=== PATIENT | female | born 1965 | race Caucasian/White ===

== ENCOUNTER 2016-11-13 11:48 | Inpatient (IN) | payer OTHER ==
[~2016-11-13] VITALS: Ht 160 cm; Wt 75.0 kg
[2016-11-13] MEDS ORDERED: HYDROmorphONE 1 MG/ML SYG IV STA (13:19)
[2016-11-13] MEDS ORDERED: ONDANSETRON 4 MG INJ IV STA (13:19)
[2016-11-13] MEDS ORDERED: FLUORESCEIN STRIP LEFT EYE ONE (13:30)
[2016-11-13] MEDS ORDERED: ACYCLOVIR 500 MG in SOD CHLORIDE 0.9% 100 ML IVPB ONE (13:30)
--- NOTE | 2016-11-13 13:47 | ERA ---
ER Documentation Chief Complaint Date/Time DATE: 11/13/16 TIME: 13:35 Chief Complaint Pt dx with Shingles to L eye and forehead yesterday, worset today. HPI This is a 50-year-old female who complains of the onset of a rash to the left forehead 3 days ago that has developed into some blisters. She saw her doctor yesterday and was told she had shingles and woke today with a much worsening condition. She says the blisters and redness and pain described as burning is along the left forehead and now around her left eye with some eyelid swelling and erythema. She says her eye has no pain when she moves her eyes or blinks her vision is clear. She denies any fever. ROS All systems reviewed and are negative except as per history of present illness. PMhx/Soc Medical and Surgical Hx: pt denies Medical Hx, pt denies Surgical Hx Hx Alcohol Use: No Hx Substance Use: No Hx Tobacco Use: No Smoking Status: Never smoker FmHx Family History: No coronary disease (0) Physical Exam Vitals Vital Signs Date Time Temp Pulse Resp B/P Pulse Ox O2 Delivery O2 Flow Rate FiO2 11/13/16 11:59 98.0 68 16 149/74 98 Physical Exam Const: Well-developed, well-nourished Head: Atraumatic, normocephalic Eyes: Normal Conjunctiva, PERRLA, EOMI, normal sclera, no nystagmus, grossly negative fluorescein stain to the left eye for any dendritic lesions ENT: Normal External Ears, Nose and Mouth, moist mucus membranes shingles rash. Neck: Full range of motion. No meningismus, no lymphadenopathy. Resp: Clear to auscultation bilaterally, no wheezing, rhonchi, rales Cardio: Regular rate and rhythm, no murmurs, S1 S2 present Abd: Soft, non tender x 4, non distended. Normal bowel sounds, no guarding or rebound, no pulsitile abdominal masses or bruits Skin: Vesicular rash to the left forehead left periorbital region and bridge of nose, negative Denis sign Back: No midline or flank tenderness Ext: No cyanosis, or edema, FROM x 4, normal inspection, neurovascularly intact x 4 Neur: Awake and alert, STR 5/5 x 4, sensation intact x 4, no focal findings, cerebellum intact Psych: Normal Mood and Affect Results 24 hrs Current Medications Medications (Trade) Dose Ordered Sig/Stephon Route PRN Reason Start Time Stop Time Status Last Admin Dose Admin Hydromorphone HCl (Dilaudid) 1 mg ONCE STAT IV 11/13/16 13:19 11/13/16 13:22 DC Ondansetron HCl 4 mg 4 mg ONCE STAT IV 11/13/16 13:19 11/13/16 13:22 DC Acyclovir/Sodium Chloride (Zovirax/NS) 100 ml @ 100 mls/hr ONCE ONCE IVPB 11/13/16 13:30 11/13/16 14:29 Fluorescein Sodium (Kcjfj-[id number]-Nyhdf) 1 strip ONCE ONCE LEFT EYE 11/13/16 13:30 11/13/16 13:31 DC Procedures/MDM Patient received intravenous acyclovir I will put Viroptic drops in the left eye as a precaution. Patient will be admitted to the hospital for severe shingles infection to the face and periorbital region. No sign of superinfection at this time Departure Diagnosis: Primary Impression: Shingles Qualified Code: B02.9 - Herpes zoster without complication Condition: Stable АНДРЕЙ OSUNA DO Nov 13, 2016 13:46
[2016-11-13 14:02] LABS: BASOPHILS % 0.1 % (0.0-2.0); CONDITION 1; EOSINOPHILS # 0.1 10^3/ul (0.0-0.5); EOSINOPHILS % 0.9 % (0.0-7.0); HEMATOCRIT 42.4 % (37.0-47.0); HEMOGLOBIN 14.4 g/dl (12.0-16.0); LYMPHOCYTES # 0.7 10^3/ul (0.8-2.9); LYMPHOCYTES % 10.5 % (15.0-51.0); MEAN CORPUSCULAR HEMOGLOBIN 30.4 pg (29.0-33.0); MEAN CORPUSCULAR HGB CONC 34.1 g/dl (32.0-37.0); MEAN CORPUSCULAR VOLUME 89.3 fl (82.0-101.0); MEAN PLATELET VOLUME 8.4 fl (7.4-10.4); MONOCYTE # 0.7 10^3/ul (0.3-0.9); MONOCYTES % 10.4 % (0.0-11.0); NEUTROPHIL # 5.1 10^3/ul (1.6-7.5); NEUTROPHILS % 78.1 % (39.0-77.0); PLATELET COUNT 204 10^3/UL (140-440); RED BLOOD COUNT 4.75 10^6/ul (4.20-5.40); RED CELL DISTRIBUTION WIDTH 13.1 % (11.5-14.5); UNCORRECTED WBC 6.5 10^3/ul (4.8-10.8); WHITE BLOOD COUNT 6.5 10^3/ul (4.8-10.8)
[2016-11-13 14:09] LABS: ALBUMIN 4.3 g/dl (3.3-4.9); POTASSIUM 3.9 mmol/L (3.5-5.1)
[2016-11-13 14:11] LABS: BILIRUBIN,INDIRECT 1.5 mg/dl (0-1.1); BILIRUBIN,TOTAL 1.5 mg/dl (0.2-1.3); CREATININE 0.57 mg/dl (0.44-1.00)
[2016-11-13 14:12] LABS: ALBUMIN/GLOBULIN RATIO 1.26; CALCIUM 9.3 mg/dl (8.4-10.2); TOTAL PROTEIN 7.7 g/dl (6.1-8.1)
[2016-11-13] MEDS ORDERED: SOD CHLORIDE 0.9% 1,000 ML IV SCH (14:12)
[2016-11-13] MEDS ORDERED: ONDANSETRON 4 MG INJ IV PRN ×3 (14:30→21:30)
[2016-11-13] MEDS ORDERED: TRIFLURIDINE 1% LEFT EYE SCH (14:30)
[2016-11-13] MEDS ORDERED: ACETAMINOPHEN 325 MG TAB PO PRN ×2 (14:30→15:30)
[2016-11-13] MEDS ORDERED: NITROGLYCERIN (SL) 0.4 MG TAB SL PRN (15:30)
[2016-11-13] MEDS ORDERED: NA PHOSPHATE/BIPHOS 133 ML ENEMA PR PRN (15:30)
[2016-11-13] MEDS ORDERED: hydrALAzine 20 MG INJ IV PRN (15:30)
[2016-11-13] MEDS ORDERED: morphine 2 MG INJ IV PRN (15:30)
[2016-11-13] MEDS: VALACYCLOVIR 500 MG TAB PO SCH ×2 (15:30→21:14)
[2016-11-13] MEDS ORDERED: NACL 0.9% 3 ML SYG IV SCH (15:30)
[2016-11-13] MEDS ORDERED: ALBUTEROL/IPRATROPIUM (NEB) 3 ML AMP HHN PRN (15:30)
[2016-11-13] MEDS ORDERED: LORAZEPAM 2 MG INJ IV PRN (15:30)
[2016-11-13] MEDS ORDERED: DOCUSATE SODIUM 100 MG CAP PO PRN (15:30)
[2016-11-13] MEDS ORDERED: MAGNESIUM HYDROXIDE 30ML CUP PO PRN (15:30)
[2016-11-13 15:55] VITALS: PULSE 65; TEMP 97.9
[2016-11-13] MEDS: SOD CHLORIDE 0.45% 1,000 ML IV SCH (16:55)
[2016-11-13] MEDS ORDERED: TRIMETHOBENZAMIDE 100 MG/ML VIAL IM PRN (17:00)
[2016-11-13 17:10] VITALS: Ht 160 cm; Wt 75.0 kg
[2016-11-13] MEDS ORDERED: ONDANSETRON INJ 8 MG in SOD CHLORIDE 0.9% 50 ML IV PRN (17:30)
[2016-11-13 17:32] VITALS: BP 148/73
--- NOTE | 2016-11-13 17:45 | HP ---
DATE OF ADMISSION: 11/13/2016 CHIEF COMPLAINT: Shingles to left forehead and worsening pain. HISTORY OF PRESENT ILLNESS: A 50-year-old female with no significant past medical history who prese nts with the last 2 days of rash to the left side of her forehead with some blisters. She saw her [facility] doctor yesterday and was prescribed acyclovir to take 5 times a day. The patient did ta ke the medication, but woke up this morning with worsening pain and specifically burning pain along the left forehead and now around her left thigh with some eyelid swelling and edema. No upper or lo wer GI bleeding, no fevers or chills. No nausea, vomiting. No headaches or dizziness or loss of co nsciousness. She says she is still able to see fine and has no pain when she blinks her eyes and he r vision is clear. The patient had a negative fluorescein stain to the left eye to look for any dendritic lesions perfo rmed in the ER and this was apparently negative. PAST MEDICAL HISTORY: As stated above. ALLERGIES: NO KNOWN DRUG ALLERGIES. MEDICATIONS AT HOME: Again, she recently was on acyclovir 5 times a day and also [place] p.r.n. PAST SURGICAL HISTORY: None. FAMILY HISTORY: Mother had hypertension. SOCIAL HISTORY: Negative for smoking, drinking, or IV drug abuse. PHYSICAL EXAMINATION: VITAL SIGNS: T-max 98.0, pulse 68, respirations 16, blood pressure 149/74, saturating at 98% on kip m air. GENERAL: The patient is lying in bed, at the bedside. She is in mild distress but alert. HEENT: Pupils are equal, round, react to light. Extraocular muscles intact. Sclerae are normal. There is a shingles rash with some blisters noted around the left upper forehead, tender to palpatio n. The rest of the HEENT exam is normal. Again as mentioned, there is also vesicular rash of the l eft forehead, left periorbital region and the bridge of the nose NECK: Supple, no thyromegaly. LUNGS: Clear to auscultation bilaterally. CARDIOVASCULAR: S1, S2 heard. No rubs or gallops. ABDOMEN: Soft, nontender, nondistended. Normal bowel sounds. MUSCULOSKELETAL: Lower extremity edema bilaterally. NEUROLOGIC: No focal deficits. LABORATORIES: CBC is completely normal. Comprehensive metabolic panel was normal. ASSESSMENT AND PLAN: A 50-year-old female coming in with redness and burning pain in the left foreh ead for the last 3 days with signs of shingles. 1. Left forehead redness that is most likely secondary to shingles. We will admit her for pain con trol and antibiotic management. Indications from the literature suggests Valtrex 1000 mg t.i.d. as a better choice than acyclovir 5 times a day, so will put her on that for now. Will consider infect ious disease consult. Please note there appears to be no vision compromise. There appears to be no crusting yet of her lesions, so will still recommend treatment for full 7 days. Will get infectiou s disease consult as well. For now, we will tentatively keep isolation precautions, although the ri sks are more for people who are immunocompromise, females or people who have never had vari jak or chickenpox. In any event, we will keep her on contact isolation. 2. Check TSH, A1c and lipid panel. 3. Gastrointestinal prophylaxis, proton pump inhibitor. 4. Deep venous thrombosis prophylaxis, heparin subcutaneously. Dictated By: CINDY DRAPER/YAYA Conf#: [id number] DID#: [id number]
[2016-11-13] MEDS: HYDROCODONE/APAP (5/325) TAB PO PRN (19:25)
[2016-11-13] MEDS: HEPARIN 5,000 UNIT/0.5 ML SYG SC SCH (21:33)
[2016-11-14] MEDS: HYDROCODONE/APAP (5/325) TAB PO PRN ×4 (03:16→22:13)
[2016-11-14] MEDS: SOD CHLORIDE 0.45% 1,000 ML IV SCH ×3 (04:21→17:54)
[2016-11-14] MEDS: PANTOPRAZOLE (EC) 40 MG TAB PO SCH (06:03)
[2016-11-14 06:51] LABS: POTASSIUM 4.3 mmol/L (3.5-5.1)
[2016-11-14 06:53] LABS: BASOPHILS % 0.4 % (0.0-2.0); EOSINOPHILS # 0.1 10^3/ul (0.0-0.5); EOSINOPHILS % 0.9 % (0.0-7.0); LYMPHOCYTES # 1.2 10^3/ul (0.8-2.9); LYMPHOCYTES % 17.9 % (15.0-51.0); MEAN CORPUSCULAR HEMOGLOBIN 31.4 pg (29.0-33.0); MEAN CORPUSCULAR HGB CONC 35.1 g/dl (32.0-37.0); MEAN CORPUSCULAR VOLUME 89.5 fl (82.0-101.0); MEAN PLATELET VOLUME 8.9 fl (7.4-10.4); MONOCYTES % 14.9 % (0.0-11.0); NEUTROPHIL # 4.3 10^3/ul (1.6-7.5); NEUTROPHILS % 65.9 % (39.0-77.0); PLATELET COUNT 184 10^3/UL (140-440); RED BLOOD COUNT 4.13 10^6/ul (4.20-5.40); RED CELL DISTRIBUTION WIDTH 13.1 % (11.5-14.5); UNCORRECTED WBC 6.6 10^3/ul (4.8-10.8); WHITE BLOOD COUNT 6.6 10^3/ul (4.8-10.8)
[2016-11-14 06:54] LABS: CREATININE 0.63 mg/dl (0.44-1.00)
[2016-11-14 06:55] LABS: CALCIUM 9.1 mg/dl (8.4-10.2); PHOSPHORUS 4.3 mg/dl (2.5-4.9)
[2016-11-14 06:56] LABS: CHOL/HDL RATIO 4.9 RATIO
[2016-11-14 07:06] LABS: CONDITION 1
[2016-11-14 07:22] LABS: THYROID STIMULATING HORMONE 0.875 MIU/L (0.465-4.680)
[2016-11-14] MEDS: VALACYCLOVIR 500 MG TAB PO SCH ×3 (08:07→21:11)
[2016-11-14 08:18] VITALS: BP 127/68; RESP 18
[2016-11-14] MEDS: HEPARIN 5,000 UNIT/0.5 ML SYG SC SCH ×2 (08:23→21:22)
[2016-11-14] MEDS ORDERED: INFLUENZA VIRUS VACCINE 0.5 ML (DISPENSING) IM* ONE (09:00)
[2016-11-14] MEDS: ARTIFICIAL TEARS 15 ML OPH BOTH EYES SCH ×5 (10:00→21:11)
[2016-11-14] MEDS ORDERED: HYDROmorphONE 1 MG/ML SYG IV PRN (10:00)
--- NOTE | 2016-11-14 10:01 | PN ---
Date/Time of Note Date/Time of Note DATE: 11/14/16 TIME: 09:57 Assessment/Plan VTE Prophylaxis VTE Prophylaxis Intervention: heparin Lines/Catheters IV Catheter Type (from Nrs): Peripheral IV Assessment/Plan Chief Complaint/Hosp Course ASSESSMENT AND PLAN: 50-year-old female coming in with redness and burning pain in the left forehead for the last 3 days with signs of shingles. 1. Left forehead redness/shingles - vesicles and redness slightly improved, but still present.There appears to be no vision compromise. There appears to be no crusting yet of her lesions,. - continue Valtrex 1000 mg t.i.d. (literature states it is a better choice than acyclovir 5 times a day) for full 7 days. - f/u infectious disease consult rec's. - tentatively keep isolation precautions, although the risks are more for people who are immunocompromise, females or people who have never had varicella or chickenpox, so keep contact isolation. - rewetting drops for left eye 2. left face pain - sec to # 1 - switch to low dose dilaudid, tylenol prn as well - tigan, zofran prn nausea 3. Gastrointestinal prophylaxis, proton pump inhibitor. 4. Deep venous thrombosis prophylaxis, heparin subcutaneously. Problems: Subjective 24 Hr Interval Summary Free Text/Dictation Pt with slightly less pain in face, but still prominent at times, has + nausea she believes sec to morphine as well. No fevers. Exam/Review of Systems Vital Signs Vitals Vital Signs Date Time Temp Pulse Resp B/P Pulse Ox O2 Delivery O2 Flow Rate FiO2 11/14/16 08:18 98.0 50 18 127/68 98 11/13/16 15:55 Room Air Intake and Output 11/13/16 11/13/16 11/14/16 15:00 23:00 07:00 Intake Total 240 ml 1800 ml Balance 240 ml 1800 ml Exam GENERAL: The patient is lying in bed, at the bedside. She is in mild distress but alert. HEENT: Pupils are equal, round, react to light. Extraocular muscles intact. Sclerae are normal. + shingles rash with some blisters noted around the left upper forehead, tender to palpation, slightly improved. The rest of the HEENT exam is normal. Again as mentioned, there is also vesicular rash of the left forehead, left periorbital region and the bridge of the nose NECK: Supple, no thyromegaly. LUNGS: Clear to auscultation bilaterally. CARDIOVASCULAR: S1, S2 heard. No rubs or gallops. ABDOMEN: Soft, nontender, nondistended. Normal bowel sounds. MUSCULOSKELETAL: Lower extremity edema bilaterally. NEUROLOGIC: No focal deficits. Results Result Diagram: 11/14/16 0520 11/14/16 0520 Results 24 hrs Laboratory Tests Test 11/13/16 13:44 11/13/16 13:45 11/14/16 05:20 Free Thyroxine 1.41 Alanine Aminotransferase (ALT/SGPT) 34 Albumin 4.3 Albumin/Globulin Ratio 1.26 Alkaline Phosphatase 81 Anion Gap 15 14 Aspartate Amino Transf (AST/SGOT) 28 Basophils # 0.0 0.0 Basophils % 0.1 0.4 Blood Urea Nitrogen 7 9 Calcium Level 9.3 9.1 Carbon Dioxide Level 28 29 Chloride Level 103 103 Creatinine 0.57 0.63 Direct Bilirubin 0.00 Eosinophils # 0.1 0.1 Eosinophils % 0.9 0.9 Globulin 3.40 H Glucose Level 112 109 Hematocrit 42.4 37.0 Hemoglobin 14.4 13.0 Indirect Bilirubin 1.5 H Lymphocytes # 0.7 L 1.2 Lymphocytes % 10.5 L 17.9 Mean Corpuscular Hemoglobin 30.4 31.4 Mean Corpuscular Hemoglobin Concent 34.1 35.1 Mean Corpuscular Volume 89.3 89.5 Mean Platelet Volume 8.4 8.9 Monocytes # 0.7 1.0 H Monocytes % 10.4 14.9 H Neutrophils # 5.1 4.3 Neutrophils % 78.1 H 65.9 Nucleated Red Blood Cells # 0.0 0.0 Nucleated Red Blood Cells % 0.0 0.0 Platelet Count 204 184 Potassium Level 3.9 4.3 Red Blood Count 4.75 4.13 L Red Cell Distribution Width 13.1 13.1 Sodium Level 142 142 Total Bilirubin 1.5 H Total Protein 7.7 White Blood Count 6.5 6.6 Cholesterol Level 173 Cholesterol/HDL Ratio 4.9 HDL Cholesterol 35 L LDL Cholesterol, Calculated 119 Magnesium Level 2.0 Phosphorus Level 4.3 Thyroid Stimulating Hormone (TSH) 0.875 Triglycerides Level 94 Medications Medications Current Medications Trifluridine (Viroptic) 1 drop NOW LEFT EYE ; Start 11/13/16 at 14:30 Acetaminophen (Tylenol Tab) 650 mg Q6H PRN PO PAIN LEVEL 1-3 OR FEVER; Start at 15:30 Acetaminophen/ Hydrocodone Bitart ([place] (5/325)) 1 tab Q6H PRN PO MODERATE PAIN LEVEL 4-6 Last administered on 11/14/16 09:23; Admin Dose 1 TAB; Start at 15:30 Morphine Sulfate (morphine) 2 mg Q4H PRN IV SEVERE PAIN LEVEL 7-10 Last administered on 11/13/16 23:53; Admin Dose 2 MG; Start 11/13/16 at 15:30 Docusate Sodium (Colace) 100 mg Q12H PRN PO CONSTIPATION; Start 11/13/16 at 15: 30 Magnesium Hydroxide (Milk Of Mag) 30 ml DAILY PRN PO CONSTIPATION; Start at 15:30 Sodium Biphosphate/ Sodium Phosphate (Fleet Enema) 133 ml DAILY PRN HI CONSTIPATION; Start 11/13/16 at 15:30 Pantoprazole (Protonix Tab) 40 mg DAILY@06 PO Last administered on 11/14/16 06 :03; Admin Dose 40 MG; Start 11/14/16 at 06:00 Heparin Sodium (Porcine) 5000 unit 5,000 unit Q12 SC Last administered on 08:23; Admin Dose 5,000 UNIT; Start 11/13/16 at 21:00 Sodium Chloride (1/2 NS) 1,000 ml @ 75 mls/hr [id number] IV Last administered on 11/14/16 06:03; Admin Dose 75 MLS/HR; Start 11/13/16 at 15:01 Lorazepam (Ativan) 0.5 mg Q6H PRN IV ANXIETY; Start 11/13/16 at 15:30 Hydralazine HCl (Apresoline) 10 mg Q6H PRN IV ELEVATED BLOOD PRESSURE; Start at 15:30 Nitroglycerin (Nitroglycerin (Sl Tab) 0.4 Mg) 1 tab Q5M PRN SL ANGINA; Start at 15:30 Valacyclovir HCl (Valtrex) 1,000 mg TID PO Last administered on 11/14/16 08:07 ; Admin Dose 1,000 MG; Start 11/13/16 at 15:30 Trimethobenzamide HCl 200 mg 200 mg Q6H PRN IM NAUSEA AND/OR VOMITING; Start at 17:00 Ondansetron HCl/ Sodium Chloride (Zofran Inj/NS) 54 ml @ 216 mls/hr Q6H PRN IV NAUSEA AND/OR VOMITING; Start 11/13/16 at 17:30 CINDY TORRES Nov 14, 2016 10:01
--- NOTE | 2016-11-14 14:23 | CONS ---
DATE OF ADMISSION: 11/13/2016 DATE OF CONSULTATION: 11/13/2016 TYPE OF CONSULTATION: Infectious Disease. REASON FOR CONSULTATION: Antibiotic management. HISTORY OF PRESENT ILLNESS: Vianca Sr is a pleasant 50-year-old female who comes in with shingles to her left forehead with increased pain. The patient has no significant past medica l history. She was well until 2 days prior to admission when she developed a rash on the left side of her forehead with some blisters. She saw her primary care doctor, was prescribed acyclovir 5 maciej es per day. She took the medication, but awoke on the with worsening pain and burning pain claudia ng the left forehead and around her left eye with some eyelid swelling and edema. No upper or lower GI bleeding, no fever or chills. No nausea, vomiting. She has had difficulty with her vision. Conor murray had a negative fluorescein stain to the left eye to look for any dendritic lesions. This was perf ormed in the emergency room and was negative. PAST MEDICAL HISTORY: Operations as outlined. FAMILY HISTORY: Noncontributory. SOCIAL HISTORY: She does not smoke, drink or abuse drugs. ALLERGIES: NONE TO PENICILLIN, SULFA OR FOODS. MEDICATIONS: Per chart. REVIEW OF SYSTEMS: As per HPI. PHYSICAL EXAMINATION: GENERAL: The patient is a well-developed, well-nourished female who is alert, responsive, oriented x3, in no acute distress. VITAL SIGNS: Stable. She is afebrile. SKIN: Without generalized rash. HEENT: Within normal limits; however, she has vesicular lesions with blister formation around the l eft upper forehead and around the left eye which does not cross the midline. Her pupils are equal, r ound, reactive to light. The rest of the HEENT exam is normal. NECK: Supple. LYMPH NODES: None palpable. CHEST: Decreased breath sounds at the bases. HEART: Without murmur or gallop. ABDOMEN: Soft, nontender, nondistended, without organosplenomegaly or masses. EXTREMITIES: Without cyanosis, clubbing, or edema. RECTAL AND GENITAL: Deferred. NEUROLOGIC: No focal neurological abnormalities. IMPRESSION AND PLAN: Patient is a 50-year-old female who comes in with shingles involving her left forehead and periorbital area. The patient was started on Valtrex 1 g p.o. t.i.d. There is no marcela ting of lesions at this point. She will get 5 to 7 days of antibiotic therapy. I will dictate my f indings to the hospitalist. Dictated By: MOR CHAVES MD, JD/YAYA Conf#: [id number] DID#: [id number]
--- NOTE | 2016-11-14 16:58 | PN ---
DATE: 11/14/2016 SUBJECTIVE: This is an infectious disease progress note. No changes overnight, no fevers. The pat ient is lying comfortably in bed. Denies pain. She is on Valtrex. PHYSICAL EXAMINATION: GENERAL: This is a well-nourished, well-developed, middle-aged woman who is alert, in no d istress. HEENT: Head atraumatic, normocephalic. The patient has hepatic lesions on the left side of her fac e with swollen eyelid. However, no involvement of the eye itself. NECK: Supple, trachea midline. CHEST: Rise symmetrical. Breath sounds clear. HEART: S1, S2. ABDOMEN: Soft. Bowel sounds present. EXTREMITIES: No cyanosis. ASSESSMENT: Facial shingles. PLAN: The patient remains stable on appropriate treatment and overall improving. We will continue her on current regimen and continue isolation for now and await for clinical improvement. Dictated By: SUSAN JACINTO PREPRESS TECHNICIAN for MOR JEAN-BAPTISTE/YAYA Conf#: [id number] DID#: [id number]
[2016-11-14 19:39] VITALS: BP 136/69; RESP 20
[2016-11-15] MEDS: PANTOPRAZOLE (EC) 40 MG TAB PO SCH (05:59)
[2016-11-15] MEDS: SOD CHLORIDE 0.45% 1,000 ML IV SCH (06:00)
[2016-11-15] MEDS: HYDROCODONE/APAP (5/325) TAB PO PRN (06:00)
[2016-11-15 08:18] VITALS: BP 135/69; RESP 16
[2016-11-15 08:34] LABS: BASOPHILS % 0.6 % (0.0-2.0); EOSINOPHILS # 0.1 10^3/ul (0.0-0.5); HEMATOCRIT 36.5 % (37.0-47.0); HEMOGLOBIN 12.6 g/dl (12.0-16.0); LYMPHOCYTES # 1.7 10^3/ul (0.8-2.9); LYMPHOCYTES % 36.4 % (15.0-51.0); MEAN CORPUSCULAR HEMOGLOBIN 30.6 pg (29.0-33.0); MEAN CORPUSCULAR HGB CONC 34.4 g/dl (32.0-37.0); MEAN CORPUSCULAR VOLUME 89.1 fl (82.0-101.0); MEAN PLATELET VOLUME 8.4 fl (7.4-10.4); MONOCYTE # 0.8 10^3/ul (0.3-0.9); MONOCYTES % 16.1 % (0.0-11.0); NEUTROPHIL # 2.1 10^3/ul (1.6-7.5); NEUTROPHILS % 43.9 % (39.0-77.0); PLATELET COUNT 187 10^3/UL (140-440); RED CELL DISTRIBUTION WIDTH 12.9 % (11.5-14.5); UNCORRECTED WBC 4.8 10^3/ul (4.8-10.8); WHITE BLOOD COUNT 4.8 10^3/ul (4.8-10.8)
[2016-11-15] MEDS: ARTIFICIAL TEARS 15 ML OPH BOTH EYES SCH ×2 (08:34→12:20)
[2016-11-15 08:36] LABS: CONDITION 1; LH ANALYZER COMMENTS 1
[2016-11-15] MEDS: VALACYCLOVIR 500 MG TAB PO SCH ×2 (08:40→12:20)
[2016-11-15] MEDS: HEPARIN 5,000 UNIT/0.5 ML SYG SC SCH (08:47)
[2016-11-15 08:50] LABS: POTASSIUM 3.8 mmol/L (3.5-5.1)
[2016-11-15 08:53] LABS: CREATININE 0.62 mg/dl (0.44-1.00)
[2016-11-15 08:54] LABS: CALCIUM 8.8 mg/dl (8.4-10.2)
--- NOTE | 2016-11-15 09:53 | PDOCDIS ---
Discharge Instructions CONDITION Patient Condition: Stable HOME CARE INSTRUCTIONS: Diet Instructions: Regular ACTIVITY: Activity Restrictions: Slowly Increase Activity FOLLOW UP/APPOINTMENTS Appointments Keep young children and females away from you until your face lesions become hard and crusted. CINDY TORRES Nov 15, 2016 09:52
[2016-11-15] MEDS ORDERED: [UNRECOGNIZED DRUG - OTHER] BOTH EYES (09:55)
[2016-11-15] MEDS ORDERED: VALA500T PO (09:55)
--- NOTE | 2016-11-15 10:35 | DS ---
DATE OF ADMISSION: 11/13/2016 DATE OF DISCHARGE: 11/15/2016 HOSPITAL COURSE: This is a 50-year-old female originally admitted on 11/13/2016 being discharged [place] fl on 11/15/2016. The patient came in with shingles to the left forehead and worsening pain. She w as admitted, placed on antibiotics, and seen by infectious disease team. [facility] the [facility], she was placed on Valtrex medications and pain control medications. Her redness symptom s and neuropathic pain symptoms improved. She has also received eyedrops for her eyes for rewetting . She was able to ambulate and tolerate a p.o. diet. Her vital signs were stable as well. Because her symptoms are clinically improved, she will be discharged home today in improved condition. DISCHARGE MEDICATIONS: She will be sent with the following medications: 1. Valtrex 1000 mg p.o. t.i.d. for 5 more days. 2. Artificial tear drops in the left eye q.i.d. 3. [place] 5/325, 1 tab p.o. q. 6 p.r.n. DISCHARGE INSTRUCTIONS: She has been given strict return precautions and also instructed for her ch ildren who have not had chickenpox to avoid seeing her until her lesions crust over and also to have females avoid contact with the patient until her lesions crust over given the risk of vari jak transmission. She will need to follow up with her regular doctor in the next few days. FINAL DIAGNOSIS: Left forehead redness and shingles with left facial pain now improving on Valtrex. Time spent discharging patient: 40 minutes. Dictated By: CINDY GONZALEZ Conf#: [id number] DID#: [id number]
--- NOTE | 2016-11-15 13:19 | PN ---
DATE: 11/15/2016 INFECTIOUS DISEASE PROGRESS NOTE SUBJECTIVE: No changes overnight. The patient is alert, feels better, looks comfortable. Facial s welling resolving, eyelid swelling also resolving. PHYSICAL EXAMINATION: GENERAL: Well-developed, middle-aged woman who is alert, in no distress. HEENT: Head atraumatic, normocephalic. Sclerae anicteric. Buccal mucosa pink. NECK: Supple. CHEST: Rise symmetrical. Breath sounds clear. HEART: S1, S2. ABDOMEN: Soft. Bowel tones present. ASSESSMENT: Resolving facial shingles. PLAN: The patient remains stable, overall improving. Okay to discharge on Valtrex for 7 to 10 more days. Dictated By: SUSAN JACINTO MANAGER OF PATIENT for MOR JEAN-BAPTISTE/YAYA Conf#: [id number] DID#: [id number]
== END 2016-11-15 13:10 | disposition home or self-care (01) | DRG 596 ==
LOC: E/R 11:48 → MS2 14:14
PROVIDERS: ADMIT Family Medicine; ATTEND Family Medicine
DX: B02.9 Zoster without complications (principal)
CPT/HCPCS: 36415; 80048; 80053; 80061; 83036; 83735; 84100; 84439; 84443; 85025; 90686; 96374; 96375; J0133; J1170; J2270; J2405; J7030